=== PATIENT | male | born 1945 | race Caucasian/White ===

== ENCOUNTER → 2017-05-25 | Day surgery (SDC) | payer OTHER ==
[~2017-05-25] VITALS: Ht 190.5 cm; Wt 113.6 kg
[~2017-05-25] MED LIST: ADVA250A INH; AMLO10TA2 PO; ATOR40TA16 PO; BUPIVACAINE HCL PF 0.25% 30 ML VIAL ONE; BUPIVACAINE HCL PF 0.5% 30 ML VIAL INFIL ONE; CEPH-459 PO; CHLORHEXIDINE GLUCONATE 2 % 1 PACK (2 CLOTHS) TOPICAL PRN; CINA30 PO; CLON0.2T PO; DILT240C44 PO; FAMO40TA PO; FAMOTIDINE 20 MG/2 ML VIAL ONE; FURO80TA PO; HYDR-3288 PO; HYDR-3516 PO; HYDR50CA PO; LACTATED RINGER'S 1000 ML IV PRN; LEVO25TA4 PO; LIDOCAINE HCL 2% 50 ML VIAL ONE; METOPROLOL TARTRATE 25 MG TAB PO PRN; MIDAZOLAM HCL 2 MG/2 ML VIAL ONE; OXYC-395 PO; POVIDONE IODINE 5% (ANTISEPSIS KIT) 4 APPLICATIONS EACH NARE PRN; SODIUM CHLORID 0.9% 500 ML IV PRN; TAMS0.4C4 PO; TRIAMCINOLONE ACETONIDE 40 MG/ML VIAL ONE; ULOR80TA2 PO; VENTAER INH; VIAG100T PO; WARF-60 PO; ceFAZolin 1,000 MG/NS 100 ML IV SCH
[2017-05-25] MEDS: BUPIVACAINE HCL PF 0.5% 30 ML VIAL ONE (08:36)
--- NOTE | 2017-05-25 09:45 | MP ---
cc: Joo Bustamante MD DATE OF OPERATION: 05/25/2017 PREOPERATIVE DIAGNOSES: 1. Right carpal tunnel syndrome. 2. Right first carpometacarpal arthritis/pain. 3. Right thumb trigger finger. PROCEDURE: 1. Right open carpal tunnel release. 2. Right thumb CMC joint steroid injection. 3. Right thumb A1 trevin steroid injection. SURGEON: Joo Bustamante III, MD PROCEDURE: The patient was brought to the operating room and placed supine on the operating table. After the correct site and side of surgery were verified by members of each team in the room multiple times including the patient and myself and after adequate preoperative markings and preoperative written consent were verified by everyone and after adequate preoperative timeout was performed to everyone's satisfaction. After adequate IV sedation was achieved, the right upper extremity was prepped and draped in traditional sterile surgical fashion. 50:50 mixture of 2% plain lidocaine and 0.5% plain Marcaine was infiltrated in the skin and subcutaneous tissue and into the carpal tunnel. A 2:1 mixture of 2% plain lidocaine and 0.5% plain Marcaine and Kenalog 40 mg/mL was then sterilely injected into the first CMC joint, for a total of 1 mL of injectate. Identical amount was injected into the thumb A1 trevin. Pressure was then held. There was no bleeding or hematoma formation. A tourniquet was not used for this case at all. A longitudinally oriented incision at the base of the palm was made and carried down through skin, subcutaneous tissue within a skin crease. The bipolar electrocautery was used as needed and was ultimately used sparingly. Blunt dissection was performed. The palmar fascia was retracted in opposite directions. The transverse carpal ligament was identified, transected to the ulnar side of midline from its proximal-most to its distal-most extent completely releasing the carpal tunnel contents. These were obviously very compressed and there was a rebound in the nerve upon its release. There was also a moderately hypertrophic tenosynovium. There were no other anatomic abnormalities. Everything appeared in continuity. Thorough irrigation with normal saline was used. There was no bleeding or oozing. Further irrigation was performed, and then the skin edges were reapproximated using running 4-0 nylon suture. The hand and arm were thoroughly cleansed and dried. Betadine and Adaptic dressing applied on top of the wound, followed by a bulky soft dressing and then a circumferential Parviz wrap. Pressure dressings were also placed over the 2 injection sites. There was no hematoma or evidence of any bleeding upon completion of the case. Capillary refill was less than 2 seconds in all fingertips. The patient tolerated the procedure well. MD GRACE Camargo/ALLY , 09:21 AM , 09:43 AM
[2017-05-25 10:30] VITALS: BP 131/71; PULSE 68; RESP 16; TEMP 97.9; O2SAT 97
--- NOTE | 2017-05-25 20:13 | EKG ---
Date Performed: 05/25/2017 Time Performed: 07:24:45 PTAGE: 71 years EKG: Sinus rhythm WITH OCCASIONAL ECTOPIC PREMATURE COMPLEXES BORDERLINE ECG NO PREVIOUS TRACING DOCTOR: Jerson Enamorado Interpretating Date/Time 05/25/2017 20:12:46
== END | disposition home or self-care (01) ==
LOC: PHSDC 06:15
PROVIDERS: ATTEND Orthopaedic Surgery Hand Surgery
DX: G56.01 Carpal tunnel syndrome, right upper limb (principal); M65.311 Trigger thumb, right thumb; M18.11 Unilateral primary osteoarthritis of first carpometacarpal joint, right hand; Z01.810 Encounter for preprocedural cardiovascular examination
CPT/HCPCS: 01810; 20600; 26055; 64721; 93005; J0690; J2250; J3301; J7120